=== PATIENT | female | born 1990 | race Caucasian/White ===

== ENCOUNTER 2023-12-25 16:30 | Emergency (ER) | payer BC, SELFPAY ==
[2023-12-25 16:43] VITALS: BP 158/96; PULSE 60; RESP 18; TEMP 36.3; O2SAT 100
--- NOTE | 2023-12-25 16:49 | XR_ITS ---
Patient: MEME BERUMEN Facility:?[facility] Patient ID:?[id number] Site Patient ID:?[id number]. Site :?[id number] Study:?XRay-Extremity Left TOE 3 VIEWS-12/25/2023 5:22:33 PM Ordering Physician:NABIL Final Report: Indication: Trauma Technique: Three views of the left small toe Comparison: None Findings/IMPRESSION: Nondisplaced lucency within the medial distal aspect of the small toe proximal phalanx extending into the PIP joint is suspicious for a nondisplaced intra- articular fracture. No other fracture, dislocation or suspicious bony lesion. Joints are otherwise preserved. There are no soft tissue radiopaque foreign bodies. Dictated by Thomas Ramachandran MD @ 12/25/2023 6:01:48 PM Signed by:?Thomas Ramachandran MD @12/25/2023 6:01:48 PM (Electronic Signature)
--- NOTE | 2023-12-25 17:02 | ED_ITS ---
HPI - Extremity Injury (Lower) General Date Seen: 12/25/23 Chief Complaint: Extremity Pain/Injury, Lower Stated Complaint: Possible broken toe L foot Time Seen by Provider: 12/25/23 16:41 Source: patient Mode of arrival: ambulatory Limitations: no limitations History of Present Illness HPI Narrative: Patient is a 33-year-old female presenting for left pinky toe pain. She states yesterday she accidentally kicked a bag of softener salt. She noticed increased pain and swelling today with bruising so came to get evaluated for possible fracture. Denies any other injuries. Denies numbness to the toe. Is able to move the toe. Related Data Home Medications Medication Instructions Recorded Confirmed cetirizine 10 mg tablet (24Hour 10 mg PO DAILY 12/25/23 12/25/23 Allergy) Allergies Allergy/AdvReac Type Severity Reaction Status Date / Time No Known Drug Allergies Allergy Verified 12/25/23 16:41 Review of Systems Narrative: Pertinent systems reviewed and are negative unless stated in HPI Exam Narrative: Exam Narrative: Const: Well-nourished, Well-developed, in mild distress Eyes: PERRL, no conjunctival injection, and symmetrical lids HENT: Atraumatic external nose and ears. Moist mucous membranes. MSK: Swelling and bruising noted to left 5th toe, tender to palpation at the base, cap refill less than 2nd Skin: Warm, Dry. No rashes or lesions. Neuro: Normal Muscle tone, No focal neurological deficits. Psych: Awake, Alert, & Oriented x3. Appropriate mood and affect. Const: Vital Signs, click to edit/add: Vital Signs - 24 hr 12/25/23 16:43 Temperature 97.4 F L Pulse Rate [Pulse Oximeter] 60 Respiratory Rate 18 Blood Pressure [Ri ght Upper Arm] 158/96 H Pulse Oximetry 100 Oxygen Delivery Me thod Room Air Course Vital Signs Vital signs: Initial Vital Signs Temperature 97.4 F L 12/25/23 16:43 Temperature Source Temporal Artery Scan 12/25/23 16:43 Pulse Rate 60 12/25/23 16:43 Respiratory Rate 18 12/25/23 16:43 Blood Pressure 158/96 H 12/25/23 16:43 Blood Pressure Mean 116 H 12/25/23 16:43 Blood Pressure Position Sitting 12/25/23 16:43 Pulse Oximetry 100 12/25/23 16:43 Oxygen Delivery Method Room Air 12/25/23 16:43 Vital Signs Temperature 97.4 F L 12/25/23 16:43 Pulse Rate 60 12/25/23 16:43 Respiratory Rate 18 12/25/23 16:43 Blood Pressure 158/96 H 12/25/23 16:43 Pulse Oximetry 100 12/25/23 16:43 Oxygen Delivery Method Room Air 12/25/23 16:43 Temperature 97.4 F L 12/25/23 16:43 Pulse Rate 60 12/25/23 16:43 Respiratory Rate 18 12/25/23 16:43 Blood Pressure 158/96 H 12/25/23 16:43 Pulse Oximetry 100 12/25/23 16:43 Oxygen Delivery Method Room Air 12/25/23 16:43 MDM - Extremity Injury (Lower) MDM Narrative Medical decision making narrative: Patient is a 33-year-old female presenting for pain to her left 5th toe. It is bruised and swollen in her likely could be fractured. Will do an x-ray of this toe. She has not required any pain medication at this time. X-ray was done reviewed by myself and the radiologist showing a nondisplaced lucency in the m edial to distal aspect of the proximal phalanx extending into the PIP joint. This is suspicious for a nondisplaced intra-articular fracture. She is otherwise doing well though and she can be discharged home. I spoke to her about doing mimi tape verses a stiff-soled shoe when she would prefer mimi taping at this time. She will be discharged home. Imaging Data X-ray left pinky toe: Attestation: I have reviewed the pertinent imaging results. Radiologist's impression: Nondisplaced lucency within the medial distal aspect of the small toe proximal phalanx extending into the PIP joint is suspicious for a nondisplaced intra- articular fracture. No other fracture, dislocation or suspicious bony lesion. Joints are otherwise preserved. There are no soft tissue radiopaque foreign bodies. Dictated by Thomas Ramachandran MD @ 12/25/2023 6:01:48 PM Discharge Plan Discharge Clinical Impression: Fracture of toe Qualifiers: Encounter type: initial encounter Toe: lesser toe Fracture type: closed Phalanx: proximal Fracture alignment: nondisplaced Laterality: left Qualified Code(s): S92.515A - Nondisplaced fracture of proximal phalanx of left lesser toe(s), initial encounter for closed fracture Patient Disposition: Home, Self-Care Condition: Stable Instructions: Toe Fracture (ED) Additional Instructions: Take Tylenol and ibuprofen for pain. Will be painful for the next several weeks while it heals. If pain is unbearable you can follow-up with orthopedics otherwise can also try wearing stiff-soled shoes. Return to emergency department for new or worsening symptoms Prescriptions: No Action cetirizine [24Hour Allergy] 10 mg tablet 10 mg PO DAILY Follow Up/Referrals: Provider,Not a Local [Primary Care Provider] - Stand Alone Forms: [facility] Info Instructions
== END 2023-12-25 18:28 | disposition home or self-care (01) ==
PROVIDERS: Emergency Provider Student in an Organized Health Care Education/Training Program
DX: S92.515A Nondisplaced fracture of proximal phalanx of left lesser toe(s), initial encounter for closed fracture (principal); W22.09XA Striking against other stationary object, initial encounter
CPT/HCPCS: 73660; 99282; 99283